=== PATIENT | female | born 1985 | race Caucasian/White ===

== ENCOUNTER → 2024-02-08 | Outpatient (CLI) | payer BC ==
[~2024-02-08] MED LIST: Gadoterate 15 ML VIAL IV ONE
== END ==
LOC: COL.RAD 14:27
DX: M47.812 Spondylosis without myelopathy or radiculopathy, cervical region (principal); G43.109 Migraine with aura, not intractable, without status migrainosus; M26.629 Arthralgia of temporomandibular joint, unspecified side; T45.2X1A Poisoning by vitamins, accidental (unintentional), initial encounter
CPT/HCPCS: A9575